=== PATIENT | female | born 1975 | race Caucasian/White ===

== ENCOUNTER 2025-02-20 18:37 | Emergency (ER) | payer BC, SELFPAY ==
[2025-02-20 18:42] VITALS: BP 160/92; PULSE 77; TEMP 36.7; O2SAT 98; BMI 29.1
--- OUTSIDE RECORDS SUMMARY | 2025-02-20 18:57 | XMS_ITS | Encounter Summary ---
Author Organization [facility] Address [address] [place] [address] Care Team Providers Care Minesweeping Officer Name Role Phone Anne Eisenberg EXPLORATION MANAGER Unavailable [phone] Jacy Robles MD Primary Care Provider Jacy Robles MD Unavailable [phone] Harmony Mares EXPLORATION MANAGER Unavailable [phone] Encounter Details Date Type Department Care Team (Late st Contact Info) Description 05/03/2023 Abstract [facility] [address] [place] [address] Anne Eisenberg EXPLORATION MANAGER [address] [place] [id number] Social History Tobacco Use Types Packs/Day Years Used Date Smoking Tobacco: Never Smokeless Tobacco: Never Alcohol Use Standard Drinks/Week Comments Yes 1 (1 standard drink = 0.6 oz pure alcohol) Caffeine intake : 2-3 cups per day coffee Humiliation, Afraid, Rape, and Kick questionnair e Answer Date Recorded Within the last year, have y ou been afraid of your partner or ex-partner? No 04/30/2023 Within the last year, have y ou been humiliated or emotionally abused in other ways by your partner or ex-partner? No Within the last year, have y ou been kicked, hit, slapped, or otherwise physically hurt by your partner or ex-partner? No 04/30/2023 Within the last year, have y ou been raped or forced to have any kind of sexual activity by your partner or ex-partner? No 04/30/2023 Social Connection and Isolat ion Panel [NHANES] Answer Date Recorded In a typical week, how many times do you talk on the phone with family, friends, or neighbors? More than three times a week 04/30/2023 How often do you get togethe r with friends or relatives? Twice a week 04/30/2023 How often do you attend chur or buddhist services? More than 4 times per year 04/30/2023 Do you belong to any clubs o r organizations such as buddhist groups, unions, fraternal or athletic groups, or school groups? Yes 04/30/2023 How often do you attend meet ings of the clubs or organizations you belong to? More than 4 times per year 04/30/2023 Are you , , di vorced, , never , or living with a partner? 04/30/2023 AUDIT-C Answer Date Recorded Q1: How often do you have a drink containing alc ohol? 2-4 times a month 04/30/2023 Q2: How many drinks containi ng alcohol do you have on a typical day when you are drinking? 1 or 2 04/30/2023 Q3: How often do you have si x or more drinks on one occasion? Never 04/30/2023 Overall Financial Resource Strain (CARDIA) Answe r Date Recorded How hard is it for you to pa y for the very basics like food, housing, medical care, and heating? Not hard at all 04/30/2023 PHQ-2 Answer Date Recorded Patient Health Questionnaire-2 Score 0 04/30/2023 [facility] - Occupational Stress Questionnaire Answer Date Recorded Do you feel stress - tense, restless, nervous, or anxious, or unable to sleep at night because your mind is troubled all the time - these days? Not at all 04/30/2023 Exercise Vital Sign Answer Date Recorde d On average, how many days pe r week do you engage in moderate to strenuous exercise (like a brisk walk)? 3 days 04/30/2023 On average, how many minutes do you engage in exercise at this level? 60 min 04/30/2023 Hunger Vital Sign Answer Date Recorded Within the past 12 months, y ou worried that your food would run out before you got the money to buy more. Never true 04/30/20 23 Within the past 12 months, t he food you bought just didn't last and you didn't have money to get more. Never true 04/30/2023 PRAPARE - Transportation Answer Date Re corded In the past 12 months, has l ack of transportation kept you from medical appointments or from getting medications? No 08/2022 In the past 12 months, has l ack of transportation kept you from meetings, work, or from getting things needed for daily living? No 04/30/2023 Housing Stability Vital Sign Answer Willi e Recorded In the last 12 months, was t here a time when you were not able to pay the mortgage or rent on time? No 04/30/2023 In the last 12 months, how many places have you lived? 1 04/30/2023 In the last 12 months, was t here a time when you did not have a steady place to sleep or slept in a jail (including now)? No 04/30/2023 Comments Unknown Sex and Gender Information Value Date Recorded Sex Assigned at Female 04/30/2023 6:51 AM EDT Legal Sex Female 6:50 PM EDT Gender Identity Female 04/30/2023 6:51 AM EDT Sexual Orientation Straight 04/30/2023 6: 51 AM EDT COVID-19 Exposure Response Date Recorded In the last 10 days, have yo u been in contact with someone who was confirmed or suspected to have Coronavirus/COVID-19? No / Unsure 05/03/2023 12:35 PM EST documented as of this encounter Plan of Treatment Not on file documented as of this encounter Visit Diagnoses Not on filedocumented in this encounter Care Teams Minesweeping Officer Relationship Specialty Start Date End Date Anne Eisenberg NP [address] [place] [address] PCP - Heavenly Wagner 10/26/2105/30 Jacy Robles MD [address] [facility] [place], [place] [id number] PCP - General Family Medicine 11/03/22 Jacy Robles MD [address] [place] [address] PCP - Sherman Commercial 06/28/2306/27 Harmony Mares NP [address] [place] [address] PCP - Sherman Commercial 06/28/24 documented as of this encounter
--- NOTE | 2025-02-20 19:05 | XR_ITS ---
The [address] [address] Patient Name: MARIELA GORDON MRN: [id number] date: 1975 Sex: F Assigned Patient Location: ER Current Patient Location: ER Accession/Order Number: [id number] Exam Date: 02/20/2025 19:15 Report Date: 02/20/2025 19:46 At the request of: SANDRA LONG Procedure: XR soft tissue neck XR soft tissue neck 02/20/2025 7:18 PM SIGNS AND SYMPTOMS: Neck pain PROTOCOL: Frontal and lateral radiographs of the chest COMPARISON: None FINDINGS: The prevertebral soft tissues are within normal limits. The nasopharyngeal, oropharyngeal, hypopharyngeal, glottic, and visualized subglottic airways are within normal limits. There is mild disc height loss with anterior osteophyte formation and C5-C6. XR/XR soft tissue neck IMPRESSION: Normal soft tissues of the neck. Mild degenerative changes are noted in the cervical spine. Impression dictated by: Anil Rosado M.D. 02/20/2025 7:46 PM Dictation Location: [place] [address] Electronically authenticated by: [id number] Y Date: 02/20/2025 19:46
--- NOTE | 2025-02-20 19:16 | PC.NURSE ---
pt ambulatory back from imaging with Isotope Technician at this time. pt aware of pending results and denies current needs.
[2025-02-20] MEDS: DEXAMETHASONE SOD PHOS 10 MG/ML VIAL PO (19:22)
[2025-02-20] MEDS: KETOROLAC TROMETHAMINE 60 MG/2 ML VIAL IM (19:25)
[2025-02-20] MEDS: ORPHENADRINE 60 MG/2 ML VIAL IM (19:28)
--- NOTE | 2025-02-20 20:00 | ED_ITS ---
HPI HPI - Neck Pain/Injury General Chief Complaint: Neck Pain/Injury Stated Complaint: NECK PAIN Time Seen by Provider: 02/20/25 18:48 Source: patient Mode of arrival: walk-in Limitations: no limitations History of Present Illness HPI Narrative: 49-year-old female presents here with a 2-day history of neck pain and spasming. Patient states that Wednesday night into Wednesday she went to bed woke up and developed pain she knows no injury or trauma. She has significant straightening of the neck consistent with probable torticollis. Denies any fevers chills no known injury. She has no upper extremity weakness. She states she has an appointment with her chiropractor but has not been able to get into see them. Patient use ice and heat therapy she felt that heat therapy made symptoms worse. Patient denies any numbness or tingling upper extremities. Related Data Previous Rx's ?Medication ?Instructions ?Recorded methocarbamol 500 mg tablet 500 mg PO TID PRN pain #10 tabs 02/20/25 prednisone 20 mg tablet 20 mg PO DAILY 5 days #5 tab s 02/20/25 Allergies Allergy/AdvReac Type Severity Reaction Status Date / Time No Known Drug Allergies Allergy Verified 02/20/25 18:42 Opioid HPI Opioid Management Most Recent Opioid Data: Last Pain Scale 7 Today, 19:25 Last MAR Pain Assessment Today, 19:25 Review of Systems ROS Status of ROS 10 or more systems reviewed and unremark able except as noted in history and below PFSH PFSH Social History Little interest or pleasure in doing things: not at all Feeling down, depressed, or hopeless: not at all Exam Narrative Exam Narrative: All Systems are negative except as noted/marked.All systems reviewed and otherwise negative Nurses note and vital signs reviewed and patient is not hypoxic. General: The patient appears well and in no apparent distress. Patient is resting comfortably on cart. Skin: Warm, dry, no pallor noted. There is no rash noted. Head: Normocephalic, atraumatic: Supple, lossing of the curvature of the neck consistent with torticollis Eye: Normal conjunctiva, no drainage, EOMI. PERRL Ears, Nose, Mouth, and Throat: oral mucosa is moist. Nares patent. Mouth without vesicles. Ear canals patent. Tm's without Erythema Cardiovascular: Regular Rate and Rhythm Musculoskeletal: The patient has no evidence of calf tenderness, no pitting edema, symmetrical pulses noted bilaterally Neurological: A&O x4, normal speech Psychiatric: Cooperative Constitutional Vital Signs, click to edit/add: Last Vital Signs Temp 98.1 F 02/20/25 18:42 Pulse 77 02/20/25 18:42 Resp 16 02/20/25 18:42 BP 160/92 H 02/20/25 18:42 Pulse Ox 98 02/20/25 18:42 Course Vital Signs Vital signs: Vital Signs Temperature 98.1 F 02/20/25 18:42 Pulse Rate 77 02/20/25 18:42 Respiratory Rate 16 02/20/25 18:42 Blood Pressure 160/92 H 02/20/25 18:42 Pulse Oximetry 98 02/20/25 18:42 Temperature 98.1 F 02/20/25 18:42 Pulse Rate 77 02/20/25 18:42 Respiratory Rate 16 02/20/25 18:42 Blood Pressure 160/92 H 02/20/25 18:42 Pulse Oximetry 98 02/20/25 18:42 MDM - Neck Pain/Injury MDM Narrative Medical decision making narrative: 49-year-old female presents here with a 2-day history of neck pain and spasming. Patient states that Wednesday night into Wednesday she went to bed woke up and developed pain she knows no injury or trauma. She has significant straightening of the neck consistent with probable torticollis. Denies any fevers chills no known injury. She has no upper extremity weakness. She states she has an appointment with her chiropractor but has not been able to get into see them. Patient use ice and heat therapy she felt that heat therapy made symptoms worse. Patient denies any numbness or tingling upper extremities. Differential Diagnosis Differential diagnosis: Likely whiplash injury to neck, cervical radiculopathy, torticollis and cervical spondylosis Medical Records Attestation: I reviewed the patient's medical records. Medical records narrative: 49-year-old female presents here with a 2-day history of neck pain and spasming. Patient states that Wednesday into Wednesday she went to bed woke up and developed pain she knows no injury or trauma. She has significant straightening of the neck consistent with probable torticollis. Denies any fevers chills no known injury. She has no upper extremity weakness. She states she has an appointment with her chiropractor but has not been able to get into see them. Patient use ice and heat therapy she felt that heat therapy made symptoms worse. Patient denies any numbness or tingling upper extremities. Patient presenting her chief complaint of neck pain muscle strain consistent with torticollis medicate her with Toradol Decadron and Flexeril. Her symptoms are improving. X-ray shows no acute fractures dislocations of the neck itself. Examination consistent of torticollis. She will be discharged home and follow- up with primary care physician Imaging Data neck: Radiologist's impression: ITS Impressions Soft Tissue Neck X-Ray 02/20/25 19:05 IMPRESSION: Normal soft tissues of the neck. Mild degenerative changes are noted in the cervical spine. Impression dictated by: Anil Rosado M.D. 02/20/2025 7:46 PM Dictation Location: [place] [address] Electronically authenticated by: [id number] Y Date: 02/20/2025 19:46 Discharge Plan Discharge Chief Complaint: Neck Pain/Injury Clinical Impression: Strain of neck muscle, Torticollis Patient Disposition: Home, Self-Care Time of Disposition Decision: 19:57 Condition: Good Prescriptions / Home Meds: New methocarbamol 500 mg tablet 500 mg PO TID PRN (Reason: pain) Qty: 10 0RF prednisone 20 mg tablet 20 mg PO DAILY 5 Days Qty: 5 0RF Print Language: Luxembourgish Instructions: Cervical Strain (ED), Spasmodic Torticollis (ED) Referrals: Physician,Non-Staff, MD [Primary Care Provider] - 1 week
== END 2025-02-20 20:09 | disposition home or self-care (01) ==
PROVIDERS: Emergency Provider Student in an Organized Health Care Education/Training Program
DX: M43.6 Torticollis (principal); S16.1XXA Strain of muscle, fascia and tendon at neck level, initial encounter
CPT/HCPCS: 70360; 96372; 99284; J1100; J1885; J2360